=== PATIENT | male | born 1970 | race Asian ===

== ENCOUNTER 2016-03-09 06:08 | Emergency (ER) | payer MEDICAID ==
[~2016-03-09] VITALS: Ht 177.8 cm; Wt 90.0 kg
[~2016-03-09 06:08] MED LIST: ADV25050 INH; ALBU8.5H3 INH; ALBU8.5H5 IH; ATA50 PO; AZIT250T94 PO; BENZ100C70 PO; CETI10CA PO; CYCL-319 PO; GUAI118L94 PO; GUAI473L22 PO; HC1C30 TOP; HYDR-3498 PO; MED4DP PO; NAPR-260 PO; PRED20TA PO; PRED50TA PO; PROM5SYR2 PO
[2016-03-09 06:12] VITALS: Ht 177.8 cm; Wt 90.0 kg
[2016-03-09] MEDS ORDERED: AZIT250T94 PO (06:40)
[2016-03-09] MEDS ORDERED: PRED20TA PO (06:40)
[2016-03-09] MEDS ORDERED: HYDR-3010 PO (06:40)
[2016-03-09] MEDS ORDERED: ALBU18HF INHALATION (06:40)
[2016-03-09] MEDS ORDERED: PROM5SYR2 PO (06:43)
--- NOTE | 2016-03-09 06:53 | ERD ---
ER Documentation Chief Complaint Date/Time DATE: 03/09/16 TIME: 06:51 Chief Complaint cough and cold sx for 3 days HPI Patient is a 45-year-old male who has a history of asthma presents with cough and congestion for 3 days. Closed is dry with his name is difficult for him to sleep. Denies any nausea or vomiting. Does admit to sore throat. He has tried several nyfw-uod-arsdzyd medications which have not helped. He uses Ventolin inhaler at home. ROS All systems reviewed and are negative except as per history of present illness. Medications Home Meds Active Scripts Promethazine HCl/Codeine (Prometh-Codein 6.25-10 mg/5 ml) 5 Ml Syrup, 5 ML PO QHS, #4 OZ Prov:DUDLEY SCALES PA-C 03/09/16 Hydroxyzine Hcl* (Hydroxyzine Hcl*) 10 Mg Tablet, 10 MG PO Q6H Y for ITCHING, # 30 TAB Prov:DUDLEY SCALES PA-C 03/09/16 Azithromycin* (Zithromax*) 250 Mg Tablet, 250 MG PO .ZPACK DIRECTED, #6 TAB TAKE 500 MG (2 TABS) THE FIRST DAY THEN 250 MG (1 TAB) DAYS 2-5 Prov:DUDLEY SCALES PA-C 03/09/16 Prednisone* (Prednisone*) 20 Mg Tab, 40 MG PO DAILY for 5 Days, TAB Prov:DUDLEY SCALES PA-C 03/09/16 Albuterol Sulfate* (Ventolin HFA*) 18 Gm Hfa.aer.ad, 2 PUFF INHALATION Q4H, #1 INHALER Prov:DUDLEY SCALES PA-C 03/09/16 Guaifenesin-Codeine Phosphate* (Guaifenesin* AC Cough Syrup) 473 Ml Liquid, 10 ML PO Q4H Y for COUGH, #120 ML Prov:JORGE WING NP 01/11/16 Cetirizine Hcl* (Zyrtec*) 10 Mg Capsule, 10 MG PO DAILY, #30 TAB.CHEW Prov:JORGE WING NP 01/11/16 Prednisone* (Prednisone*) 50 Mg Tablet, 50 MG PO DAILY for 5 Days, TAB Prov:JORGE WING NP 11/17/16 Albuterol Sulfate* (Proair HFA*) 8.5 Gm Hfa.aer.ad, 2 PUFF INH Q4H Y for WHEEZING AND SOB, #1 INHALER Prov:JORGE WING NP 01/11/16 Prednisone* (Prednisone*) 20 Mg Tab, 40 MG PO DAILY for 4 Days, TAB Prov:HOLGER VU PA-C 10/18/15 Benzonatate* (Tessalon Perle*) 100 Mg Capsule, 100 MG PO Q8H Y for COUGH, #30 CAP Prov:HOLGER VU PA-C 10/18/15 Azithromycin* (Zithromax*) 250 Mg Tablet, 250 MG PO DAILY, #6 TAB 500 mg (2 tabs of 250 mg) on day 1 250 mg PO on day 2 250 mg PO on day 3 250 mg PO on day 4 250 mg PO on day 5 Prov:HOLGER VU PA-C 10/18/15 Albuterol Sulfate* (Proair HFA*) 8.5 Gm Hfa.aer.ad, 2 PUFF INH Q4, #1 INHALER Prov:HOLGER VU PA-C 10/18/15 Promethazine HCl/Codeine (Prometh-Codein 6.25-10 mg/5 ml) 5 Ml Syrup, 5 ML PO QHS, #100 ML Prov:HOLGER VU PA-C 10/18/15 Prednisone* (Prednisone*) 20 Mg Tab, 60 MG PO DAILY for 5 Days, TAB Prov:SEGUNDO SORIANO MD 09/21/15 Methylprednisolone* (Medrol* DOSE PACK) 4 Mg/Dose-Pack Tab.ds.pk, 4 MG PO . DIRECTED, #1 PACKET Prov:KRYSTLE FREEMAN DO 09/20/15 Cyclobenzaprine Hcl* (Cyclobenzaprine Hcl*) 10 Mg Tablet, 10 MG PO TID for 10 Days, #30 TAB Prov:CHICA SIM PA-C 09/16/15 Hydrocortisone* Topical (Hydrocortisone* Topical) 1%-28.35 Gm Cream..g., 1 APPLIC TOP Q6 Y for ITCHING, #1 TUB Prov:KENDY LEACH PA-C 09/16/15 Hydroxyzine Hcl* (Atarax*) 50 Mg Tab, 50 MG PO Q6H Y for ITCHING, #30 TAB Prov:KENDY LEACH PA-C 09/16/15 Naproxen* (Naprosyn*) 500 Mg Tablet, 500 MG PO BID Y for PAIN AND/OR INFLAMMATION, #30 TAB Prov:KENDY LEACH PA-C 09/16/15 Hydrocodone Bit-Acetaminophen* ([place]*) 5-325 Mg Tab, 1 TAB PO Q6 Y for PAIN, # 15 TAB Prov:KENDY LEACH PA-C 09/16/15 Salmeterol Xinaf/Fluticasone* (Advair*) 250-50 Diskus Inhaler, 1 INH INH BID, # 1 INH Prov:JORGE WING NP 10/17/14 Guaifenesin-Codeine Phosphate* (Guaifenesin* with Codeine Liq) 120 Ml Liquid, 5 ML PO Q4H for COUGH, #30 ML Prov:JORGE WING NP 10/17/14 Albuterol Sulfate* (Albuterol Sulfate* HFA) 8.5 Gm Hfa.aer.ad, 2 PUFF IH Q4H Y for WHEEZING AND SOB, #1 EA Prov:JORGE WING NP 10/17/14 Allergies Allergies: Coded Allergies: No Known Drug Allergies (Verified Allergy, Unknown, 10/18/15) PMhx/Soc History of Surgery: No Anesthesia Reaction: No Hx Neurological Disorder: No Hx Respiratory Disorders: Yes (ASTHMA, bronchitis) Hx Cardiac Disorders: No Hx Psychiatric Problems: No Hx Miscellaneous Medical Probl: No Hx Alcohol Use: Yes (SOCIAL- BEER, 3-4 times/week) Hx Substance Use: No Hx Tobacco Use: No FmHx Family History: No diabetes Physical Exam Vitals Vital Signs Date Time Temp Pulse Resp B/P Pulse Ox O2 Delivery O2 Flow Rate FiO2 03/09/16 06:12 97.9 94 18 126/85 97 Physical Exam General: well developed, well nourished, alert, nontoxic, no distress Head: normocephalic, atraumatic Neck: Supple, nontender, no lymphadenopathy, no midline tenderness Oropharynx: no tonsilar erythema or edema, uvula midline, no exudates, no kissing tonsils, no drooling Respiratory: Mild bilateral respiratory wheezing, speaks in full sentences, no use of accesory muscles or labored breathing Cardiovascular: RRR, No murmurs uch in tact Procedures/MDM 45-year-old asthmatic male presents with the swell slightly wheezy bronchitis. His vital signs are all within normal limits and his examination is benign. I have a low suspicion for pneumonia. He is treated out patiently with Ventolin, prednisone, Z-Filiberto, and hydroxyzine. He was also given a cough syrup per his request.Recommended this patient follow up with her primary care doctor within 48 hours or return to the emergency room for any worsening of symptoms. However this time I do believe there is suitable for outpatient management. I answered all their questions and they agreed with the plan and were discharged home. Departure Diagnosis: Primary Impression: Acute wheezy bronchitis Condition: Stable Patient Instructions: Bronchitis With Wheezing (Adult) Additional Instructions: Call your primary care doctor TOMORROW for an appointment during the next 1-2 days.See the doctor sooner or return here if your condition worsens before your appointment time. DUDLEY SCALES PA-C Mar 09, 2016 06:53
[2016-03-09 07:00] VITALS: BP 118/78; PULSE 78; RESP 18; TEMP 98
[2016-03-09] MEDS ORDERED: HYDR-3012 PO (07:04)
== END 2016-03-09 07:00 | disposition home or self-care (01) ==
LOC: FTE 06:08
DX: J20.9 Acute bronchitis, unspecified (principal); J45.909 Unspecified asthma, uncomplicated
CPT/HCPCS: 99284

== ENCOUNTER 2016-06-06 21:30 | Emergency (ER) | payer MEDICAID ==
[~2016-06-06] VITALS: Ht 177.8 cm; Wt 89.0 kg
[~2016-06-06 21:30] MED LIST changes: +ALBU18HF INHALATION; +HYDR-3010 PO; +HYDR-3012 PO
[2016-06-06 21:33] VITALS: Ht 177.8 cm; Wt 89.0 kg
[2016-06-06] MEDS ORDERED: ALBUTEROL 0.5% (NEB) 2.5 MG/0.5 ML AMP INH STA (22:06)
[2016-06-06] MEDS ORDERED: IPRATROPIUM (NEB) 0.5 MG/2.5 ML AMP INH STA (22:06)
[2016-06-06] MEDS ORDERED: METHYLPREDNISOLONE 125 MG INJ IM STA (22:06)
--- NOTE | 2016-06-06 23:22 | ERD ---
ER Documentation Chief Complaint Date/Time DATE: 06/06/16 Chief Complaint Asthma exacerbation HPI The patient is a 45-year-old male, with a history of asthma, who presents to the Emergency Department with complaint of asthma exacerbation. He reports that over the past two weeks he has been experiencing intermittent wheezing and shortness of breath. He has been using his ProAir HFA inhaler with minimal short-term relief, but soon after his symptoms resume. He admits to mild shortness of breath and dry cough at this time. Otherwise, denies chest pain, palpitations, stridor, lower extremity edema, calf swelling/tenderness. Denies history of DVT/PE. Denies fevers, chills, neck pain, neck stiffness, sore throat, new rashes. Denies any other complaints at this time. The patient does note that in the past, when he used Ventolin HFA, his symptoms were better alleviated, but has not been able to afford the Ventolin HFA under his insurance plan. ROS All systems reviewed and are negative except as per history of present illness. Medications Home Meds Active Scripts Hydroxyzine Hcl* (Hydroxyzine Hcl*) 50 Mg Tablet, 50 MG PO Q8, #30 TAB Prov:RACHEAL GRADY PA-C 06/06/16 Montelukast Sodium* (Singulair*) 10 Mg Tablet, 10 MG PO QHS, #30 TAB Prov:RACHEAL GRADY PA-C 06/06/16 Prednisone* (Prednisone*) 20 Mg Tab, 40 MG PO DAILY for 5 Days, TAB Prov:RACHEAL GRADY PA-C 06/06/16 Hydroxyzine Hcl* (Hydroxyzine Hcl*) 50 Mg Tablet, 50 MG PO Q6H Y for ITCHING, # 30 TAB Prov:DUDLEY SCALES PA-C 03/09/16 Promethazine HCl/Codeine (Prometh-Codein 6.25-10 mg/5 ml) 5 Ml Syrup, 5 ML PO QHS, #4 OZ Prov:DUDLEY SCALES PA-C 03/09/16 Hydroxyzine Hcl* (Hydroxyzine Hcl*) 10 Mg Tablet, 10 MG PO Q6H Y for ITCHING, # 30 TAB Prov:DUDLEY SCALES PA-C 03/09/16 Azithromycin* (Zithromax*) 250 Mg Tablet, 250 MG PO .[place] DIRECTED, #6 TAB TAKE 500 MG (2 TABS) THE FIRST DAY THEN 250 MG (1 TAB) DAYS 2-5 Prov:SCALESDUDLEY SHIN PA-C 03/09/16 Prednisone* (Prednisone*) 20 Mg Tab, 40 MG PO DAILY for 5 Days, TAB Prov:SCALESDUDLEY SHIN PA-C 03/09/16 Albuterol Sulfate* (Ventolin HFA*) 18 Gm Hfa.aer.ad, 2 PUFF INHALATION Q4H, #1 INHALER Prov:SCALESDUDLEY SHIN PA-C 03/09/16 Guaifenesin-Codeine Phosphate* (Guaifenesin* AC Cough Syrup) 473 Ml Liquid, 10 ML PO Q4H Y for COUGH, #120 ML Prov:JORGE WING NP 01/11/16 Cetirizine Hcl* (Zyrtec*) 10 Mg Capsule, 10 MG PO DAILY, #30 TAB.CHEW Prov:JORGE WING NP 01/11/16 Prednisone* (Prednisone*) 50 Mg Tablet, 50 MG PO DAILY for 5 Days, TAB Prov:JORGE WING NP 01/11/16 Albuterol Sulfate* (Proair HFA*) 8.5 Gm Hfa.aer.ad, 2 PUFF INH Q4H Y for WHEEZING AND SOB, #1 INHALER Prov:JORGE WING NP 01/11/16 Prednisone* (Prednisone*) 20 Mg Tab, 40 MG PO DAILY for 4 Days, TAB Prov:HOLGER VU PA-C 10/18/15 Benzonatate* (Tessalon Perle*) 100 Mg Capsule, 100 MG PO Q8H Y for COUGH, #30 CAP Prov:HOLGER VU PA-C 10/18/15 Azithromycin* (Zithromax*) 250 Mg Tablet, 250 MG PO DAILY, #6 TAB 500 mg (2 tabs of 250 mg) on day 1 250 mg PO on day 2 250 mg PO on day 3 250 mg PO on day 4 250 mg PO on day 5 Prov:HOLGER VU PA-C 10/18/15 Albuterol Sulfate* (Proair HFA*) 8.5 Gm Hfa.aer.ad, 2 PUFF INH Q4, #1 INHALER Prov:HOLGER VU PA-C 10/18/15 Promethazine HCl/Codeine (Prometh-Codein 6.25-10 mg/5 ml) 5 Ml Syrup, 5 ML PO QHS, #100 ML Prov:HOLGER VU PA-C 10/18/15 Prednisone* (Prednisone*) 20 Mg Tab, 60 MG PO DAILY for 5 Days, TAB Prov:SEGUNDO SORIANO MD 09/21/15 Methylprednisolone* (Medrol* DOSE PACK) 4 Mg/Dose-Pack Tab.ds.pk, 4 MG PO . DIRECTED, #1 PACKET Prov:KRYSTLE FREEMAN DO 09/20/15 Cyclobenzaprine Hcl* (Cyclobenzaprine Hcl*) 10 Mg Tablet, 10 MG PO TID for 10 Days, #30 TAB Prov:CHICA SIM PA-C 09/16/15 Hydrocortisone* Topical (Hydrocortisone* Topical) 1%-28.35 Gm Cream..g., 1 APPLIC TOP Q6 Y for ITCHING, #1 TUB Prov:KENDY LEACH PA-C 09/16/15 Hydroxyzine Hcl* (Atarax*) 50 Mg Tab, 50 MG PO Q6H Y for ITCHING, #30 TAB Prov:KENDY LEACH PA-C 09/16/15 Naproxen* (Naprosyn*) 500 Mg Tablet, 500 MG PO BID Y for PAIN AND/OR INFLAMMATION, #30 TAB Prov:KENDY LEACH PA-C 09/16/15 Hydrocodone Bit-Acetaminophen* ([place]*) 5-325 Mg Tab, 1 TAB PO Q6 Y for PAIN, # 15 TAB Prov:KENDY LEACH PA-C 09/16/15 Salmeterol Xinaf/Fluticasone* (Advair*) 250-50 Diskus Inhaler, 1 INH INH BID, # 1 INH Prov:JORGE WING NP 10/17/14 Guaifenesin-Codeine Phosphate* (Guaifenesin* with Codeine Liq) 120 Ml Liquid, 5 ML PO Q4H for COUGH, #30 ML Prov:JORGE WING NP 10/17/14 Albuterol Sulfate* (Albuterol Sulfate* HFA) 8.5 Gm Hfa.aer.ad, 2 PUFF IH Q4H Y for WHEEZING AND SOB, #1 EA Prov:JORGE WING RAMÍREZ TJuna RUTLEDGE 10/17/14 Allergies Allergies: Coded Allergies: No Known Drug Allergies (Verified Allergy, Unknown, 10/18/15) PMhx/Soc Medical and Surgical Hx: pt denies Medical Hx, pt denies Surgical Hx History of Surgery: No Anesthesia Reaction: No Hx Neurological Disorder: No Hx Respiratory Disorders: Yes (ASTHMA, bronchitis) Hx Cardiac Disorders: No Hx Psychiatric Problems: No Hx Miscellaneous Medical Probl: No Hx Alcohol Use: Yes (SOCIAL- BEER, 3-4 times/week) Hx Substance Use: No Hx Tobacco Use: No Physical Exam Vitals Vital Signs Date Time Temp Pulse Resp B/P Pulse Ox O2 Delivery O2 Flow Rate FiO2 06/06/16 23:29 97.3 111 20 131/67 98 Room Air 06/06/16 22:14 81 18 98 21 06/06/16 21:33 97.0 83 20 140/63 97 Physical Exam GENERAL: Well-developed, well-nourished, in no acute distress HEENT: Head is normocephalic, atraumatic. No scleral pallor or icterus. Pupils equal, round and reactive to light. Extraocular movements intact. Conjunctiva pink. Bilaterally tympanic membranes are clear with no evidence of erythema, effusion or dulling of the light reflex. Moist mucous membranes. No pharyngeal erythema or exudates. Uvula is midline. NECK: Supple. No masses, no tenderness, no lymphadenopathy. Trachea midline. No nuchal rigidity. Full range of motion. RESPIRATORY: Scattered wheezes throughout bilateral lung wright. No rales or rhonchi. Normal expiratory effort. No accessory muscle use. No retractions. No nasal flaring. Speaking in full sentences. CARDIOVASCULAR: Regular rate and rhythm. S1 and S2 normal. No murmurs, rubs, or gallops. GASTROINTESTINAL: Abdomen is soft, nontender, and nondistended. EXTREMITIES: No clubbing, cyanosis, or edema. Normal skin perfusion. Full range of motion of both the upper and lower extremities bilaterally. Muscle tone is normal. No focal swelling or erythema. Distal pulses are palpable, 2+ bilaterally. Capillary refill is less than 2 seconds. NEUROLOGIC: The patient is alert, awake, and oriented x 3. No focal neurologic deficits. INTEGUMENT: Skin is clean, dry and intact. PSYCHIATRIC: Cooperative. Results 24 hrs Current Medications Medications (Trade) Dose Ordered Sig/Aubrie Route PRN Reason Start Time Stop Time Status Last Admin Dose Admin Albuterol (Proventil 0.5% (Neb)) 10 mg ONCE STAT INH 06/06/16 22:06 06/06/16 22:07 DC 06/06/16 22:14 Ipratropium [place] (Atrovent 0.02% (Neb)) 1 mg ONCE STAT INH 06/06/16 22:06 06/06/16 22:07 DC 06/06/16 22:14 Methylprednisolone Sodium Succinate (Solu-Medrol) 125 mg ONCE STAT IM 06/06/16 22:06 06/06/16 22:07 DC 06/06/16 22:11 Albuterol (Ventolin Hfa) 2 puff ONCE ONCE INH 06/06/16 23:30 06/06/16 23:31 DC 06/06/16 23:29 Procedures/MDM This is a 45-year-old male presenting to the emergency department with acute asthma exacerbation. He was given albuterol 10 mg as well as Atrovent 1 mg by nebulizer treatment over 1 hour. Solu-Medrol 125 mg IM was also administered. After rest, a period of observation, medication and breathing treatment, the patient had resolution of his wheezing, and felt significantly better. His lungs are now clear to auscultation bilaterally, with no rales, rhonchi or wheezing. No intercostal retractions, nasal flaring, accessory muscle use or signs of respiratory distress. Clinical presentation is not consistent with pneumonia, acute coronary syndrome, pulmonary embolism, acute respiratory distress syndrome, status asthmaticus, sinusitis, otitis media, otitis externa, pharyngitis, airway obstruction, anaphylaxis, more thorax, acute/surgical abdomen, sepsis, dehydration or meningitis. At this time, the patient is in stable condition, and no longer experiencing any wheezing or shortness of breath , and therefore can be discharged home with prescriptions for a short course of prednisone, and a Ventolin inhaler (provided in ED). Patient is noted to be tachycardic, however likely secondary to recent breathing treatment. He is advised to follow-up with his primary care provider for reevaluation and further management within 2-3 days, or return to the ER sooner for any new or worsening symptoms. I shared my medical decision making and plan with the patient at length and in great detail, and he verbally understands and agrees with the plan for further observation and care as an outpatient. At the time of discharge, all questions were answered. Departure Diagnosis: Primary Impression: Asthma with acute exacerbation Asthma severity: unspecified severity Qualified Code: J45.901 - Asthma with acute exacerbation, unspecified asthma severity Condition: Stable Patient Instructions: Asthma, Acute (Adult) Additional Instructions: Call your primary care doctor TOMORROW for an appointment during the next 2-3 days.See the doctor sooner or return here if your condition worsens before your appointment time. RACHEAL GRADY PA-C Jun 06, 2016 23:22
[2016-06-06] MEDS ORDERED: PRED20TA PO (23:23)
[2016-06-06 23:29] VITALS: BP 131/67; PULSE 111; RESP 20; TEMP 97.3
[2016-06-06] MEDS ORDERED: MONT10TA21 PO (23:29)
[2016-06-06] MEDS ORDERED: HYDR-3012 PO (23:29)
[2016-06-06] MEDS ORDERED: ALBUTEROL 18 GM INHALER INH ONE (23:30)
== END 2016-06-06 23:31 | disposition home or self-care (01) ==
LOC: FTE 21:30
DX: J45.901 Unspecified asthma with (acute) exacerbation (principal)
CPT/HCPCS: 94644; J2930; Z7610; 96372

== ENCOUNTER 2016-06-23 23:46 | Emergency (ER) | payer MEDICAID ==
[~2016-06-23] VITALS: Ht 177.8 cm; Wt 89.0 kg
[~2016-06-23 23:46] MED LIST changes: +MONT10TA21 PO
[2016-06-24 00:06] VITALS: Ht 177.8 cm; Wt 89.0 kg
[2016-06-24] MEDS ORDERED: PROM25TA14 PO (00:27)
[2016-06-24] MEDS ORDERED: LORA-186 PO (00:27)
--- NOTE | 2016-06-24 00:31 | ERD ---
ER Documentation Chief Complaint Date/Time DATE: 06/24/16 TIME: 00:28 Chief Complaint NON PRODUCTIVE COUGH X 1 WEEK, NO FEVER HPI This is a 45-year-old male history of asthma presenting to the emergency department complaining of a dry cough for the past week. He rates as moderate and 3 patient admits to having a sore throat denies any fevers, ear pain, shortness of breath, chest pain. Patient states that he was seen here 2 weeks ago for cough and he was offered a chest x-ray but he denied it. Patient is now asking for a chest x-ray ROS All systems reviewed and are negative except as per history of present illness. Medications Home Meds Active Scripts Loratadine* (Claritin*) 10 Mg Tablet, 10 MG PO DAILY, #20 TAB Prov:EMIL RINCON PA-C 06/24/16 Promethazine Hcl* (Phenergan*) 25 Mg Tablet, 25 MG PO Q6 Y for COUGH, #15 TAB Prov:EMIL RINCON PA-C 06/24/16 Hydroxyzine Hcl* (Hydroxyzine Hcl*) 50 Mg Tablet, 50 MG PO Q8, #30 TAB Prov:RACHEAL GRADY PA-C 06/06/16 Montelukast Sodium* (Singulair*) 10 Mg Tablet, 10 MG PO QHS, #30 TAB Prov:RACHEAL GRADY PA-C 06/06/16 Prednisone* (Prednisone*) 20 Mg Tab, 40 MG PO DAILY for 5 Days, TAB Prov:RACHEAL GRADY PA-C 06/06/16 Hydroxyzine Hcl* (Hydroxyzine Hcl*) 50 Mg Tablet, 50 MG PO Q6H Y for ITCHING, # 30 TAB Prov:DUDLEY SCALES PA-C 03/09/16 Promethazine HCl/Codeine (Prometh-Codein 6.25-10 mg/5 ml) 5 Ml Syrup, 5 ML PO QHS, #4 OZ Prov:DUDLEY SCALES PA-C 03/09/16 Hydroxyzine Hcl* (Hydroxyzine Hcl*) 10 Mg Tablet, 10 MG PO Q6H Y for ITCHING, # 30 TAB Prov:DUDLEY SCALES PA-C 03/09/16 Azithromycin* (Zithromax*) 250 Mg Tablet, 250 MG PO .ZPACK DIRECTED, #6 TAB TAKE 500 MG (2 TABS) THE FIRST DAY THEN 250 MG (1 TAB) DAYS 2-5 Prov:SCALESDUDLEY SHIN PA-C 03/09/16 Prednisone* (Prednisone*) 20 Mg Tab, 40 MG PO DAILY for 5 Days, TAB Prov:SCALESDUDLEY SHIN PA-C 03/09/16 Albuterol Sulfate* (Ventolin HFA*) 18 Gm Hfa.aer.ad, 2 PUFF INHALATION Q4H, #1 INHALER Prov:SCALESDUDLEY SHIN PA-C 03/09/16 Guaifenesin-Codeine Phosphate* (Guaifenesin* AC Cough Syrup) 473 Ml Liquid, 10 ML PO Q4H Y for COUGH, #120 ML Prov:JORGE WING NP 01/11/16 Cetirizine Hcl* (Zyrtec*) 10 Mg Capsule, 10 MG PO DAILY, #30 TAB.CHEW Prov:JORGE WING NP 01/11/16 Prednisone* (Prednisone*) 50 Mg Tablet, 50 MG PO DAILY for 5 Days, TAB Prov:JORGE WING NP 01/11/16 Albuterol Sulfate* (Proair HFA*) 8.5 Gm Hfa.aer.ad, 2 PUFF INH Q4H Y for WHEEZING AND SOB, #1 INHALER Prov:JORGE WING NP 01/11/16 Prednisone* (Prednisone*) 20 Mg Tab, 40 MG PO DAILY for 4 Days, TAB Prov:HOLGER VU PA-C 10/18/15 Benzonatate* (Tessalon Perle*) 100 Mg Capsule, 100 MG PO Q8H Y for COUGH, #30 CAP Prov:HOLGER VU PA-C 10/18/15 Azithromycin* (Zithromax*) 250 Mg Tablet, 250 MG PO DAILY, #6 TAB 500 mg (2 tabs of 250 mg) on day 1 250 mg PO on day 2 250 mg PO on day 3 250 mg PO on day 4 250 mg PO on day 5 Prov:HOLGER VU PA-C 10/18/15 Albuterol Sulfate* (Proair HFA*) 8.5 Gm Hfa.aer.ad, 2 PUFF INH Q4, #1 INHALER Prov:HOLGER VU PA-C 10/18/15 Promethazine HCl/Codeine (Prometh-Codein 6.25-10 mg/5 ml) 5 Ml Syrup, 5 ML PO QHS, #100 ML Prov:HOLGER VU PA-C 10/18/15 Prednisone* (Prednisone*) 20 Mg Tab, 60 MG PO DAILY for 5 Days, TAB Prov:SEGUNDO SORIANO MD 09/21/15 Methylprednisolone* (Medrol* DOSE PACK) 4 Mg/Dose-Pack Tab.ds.pk, 4 MG PO . DIRECTED, #1 PACKET Prov:KRYSTLE FREEMAN DO 09/20/15 Cyclobenzaprine Hcl* (Cyclobenzaprine Hcl*) 10 Mg Tablet, 10 MG PO TID for 10 Days, #30 TAB Prov:CHICA SIM PA-C 09/16/15 Hydrocortisone* Topical (Hydrocortisone* Topical) 1%-28.35 Gm Cream..g., 1 APPLIC TOP Q6 Y for ITCHING, #1 TUB Prov:KENDY LEACH PA-C 09/16/15 Hydroxyzine Hcl* (Atarax*) 50 Mg Tab, 50 MG PO Q6H Y for ITCHING, #30 TAB Prov:KENDY LEACH PA-C 09/16/15 Naproxen* (Naprosyn*) 500 Mg Tablet, 500 MG PO BID Y for PAIN AND/OR INFLAMMATION, #30 TAB Prov:KENDY LEACH PA-C 09/16/15 Hydrocodone Bit-Acetaminophen* ([place]*) 5-325 Mg Tab, 1 TAB PO Q6 Y for PAIN, # 15 TAB Prov:KENDY LEACH PA-C 09/16/15 Salmeterol Xinaf/Fluticasone* (Advair*) 250-50 Diskus Inhaler, 1 INH INH BID, # 1 INH Prov:JORGE WING NP 10/17/14 Guaifenesin-Codeine Phosphate* (Guaifenesin* with Codeine Liq) 120 Ml Liquid, 5 ML PO Q4H for COUGH, #30 ML Prov:JORGE WING NP 10/17/14 Albuterol Sulfate* (Albuterol Sulfate* HFA) 8.5 Gm Hfa.aer.ad, 2 PUFF IH Q4H Y for WHEEZING AND SOB, #1 EA Prov:JORGE WINGJuan DIRECTOR PUBLIC SERVICE 10/17/14 Allergies Allergies: Coded Allergies: No Known Drug Allergies (Verified Allergy, Unknown, 10/18/15) PMhx/Soc History of Surgery: No Anesthesia Reaction: No Hx Neurological Disorder: No Hx Respiratory Disorders: Yes (ASTHMA, bronchitis) Hx Cardiac Disorders: No Hx Psychiatric Problems: No Hx Miscellaneous Medical Probl: No Hx Alcohol Use: Yes (SOCIAL- BEER, 3-4 times/week) Hx Substance Use: No Hx Tobacco Use: No Physical Exam Vitals Vital Signs Date Time Temp Pulse Resp B/P Pulse Ox O2 Delivery O2 Flow Rate FiO2 06/24/16 00:06 98.5 85 18 124/86 100 Physical Exam Const: Well developed well-nourished no acute distress Head: Atraumatic Eyes: Normal Conjunctiva ENT: Normal External Ears, Nose and Mouth. Neck: Full range of motion..~ No meningismus. Resp: Clear to auscultation bilaterally Cardio: Regular rate and rhythm, no murmurs Abd: Soft, non tender, non distended. Normal bowel sounds Skin: No petechiae or rashes Back: No midline or flank tenderness Ext: No cyanosis, or edema Neur: Awake and alert Psych: Normal Mood and Affect Procedures/MDM This is a 45-year-old male with a history of asthma presenting to the emergency department complaining of a dry cough for the past week which is likely due to a viral upper respiratory infection or allergies/postnasal drip. There was no evidence of pneumonia, asthma exacerbation, pneumothorax or pleural effusion on examination. Patient was given prescription for promethazine and Claritin. He suitable to follow-up with his primary care physician for further evaluation and management. I discussed return to the ER for any worsening signs or symptoms. Chest x-ray was done in the ER, it appears normal any evidence of infiltrates, pneumothorax or pleural effusion. He stable for discharge. Discussed return to the ER for any worsening symptoms. He understands and agrees with Departure Diagnosis: Primary Impression: Cough Condition: Stable Patient Instructions: Cough, Chronic, Uncertain Cause, (Adult), [place], Viral, No Abx (Adult) Referrals: NO PRIMARY,CARE PHYSICIAN (PCP) Additional Instructions: FOLLOW UP WITH YOUR PRIMARY CARE PHYSICIAN TOMORROW.Return to this facility if you are not improving as expected. Take all medicines as directed. Return to this facility if you are not improving as expected. You have been given a medicine which may cause drowsiness.DO NOT DRIVE OR OPERATE DANGEROUS MACHINERY while taking this medicine! EMIL RINCON PA-C June 24, 2016 00:31
--- NOTE | 2016-06-24 01:11 | RADRPT ---
PROCEDURE: Portable chest x-ray. CLINICAL INDICATION: Cough. TECHNIQUE: Portable AP view of the chest. COMPARISON: 10/18/2015. FINDINGS: No pulmonary edema or conolidation is identified. The cardiac silhouette is magnified. No pleural effusion is seen. There is no pneumothorax. IMPRESSION: 1. No evidence of acute cardiopulmonary disease. RPTAT: HTAR .Lukasz Garcia MD, MD Date Time Electronically viewed and signed by .Lukasz Garcia MD, on 06/24/2016 01:11 .R/
== END 2016-06-24 01:32 | disposition home or self-care (01) ==
LOC: FTE 23:46
DX: R05 Cough (principal); J45.909 Unspecified asthma, uncomplicated
CPT/HCPCS: 71010; Z7502

== ENCOUNTER 2016-10-31 04:48 | Emergency (ER) | payer SELFPAY ==
[~2016-10-31] VITALS: Ht 177.8 cm; Wt 87.0 kg
[~2016-10-31 04:48] MED LIST changes: +LORA-186 PO; +PROM25TA14 PO
[2016-10-31 05:01] VITALS: Ht 177.8 cm; Wt 87.0 kg
[2016-10-31 06:05] VITALS: BP 149/93; PULSE 74; TEMP 98.2
[2016-10-31] MEDS ORDERED: ELIM TOP (06:20)
[2016-10-31] MEDS ORDERED: BEN25 PO (06:21)
--- NOTE | 2016-10-31 06:30 | ERD ---
ER Documentation Chief Complaint Date/Time DATE: 10/31/16 TIME: 06:22 Chief Complaint itching x 3 days, only at night. "unable to sleep" No rash noted HPI Patient is a 46-year-old male who presents to the emergency department for concerns of itching 3 days which is only present at night. Patient states that his dog had fleasAnd tics. Patient states that he treated his dog. Patient states after treating his dog he developed itching. Patient states he "did research and called an spear fisher who told me that I have fleas and mites." Patient reports difficulty sleeping secondary itching. Patient has no obvious rashes. Patient denies any recent travel, new foods, environments or medications. Patient denies any fevers or chills. Patient denies any homicidal suicidal ideations at this time. ROS All systems reviewed and are negative except as per history of present illness. Medications Home Meds Active Scripts Diphenhydramine Hcl* (Benadryl*) 25 Mg Cap, 25 MG PO Q6, #20 CAP Prov:ECHO LINARES PA-C 10/31/16 Permethrin* (Elimite*) 5% Cr, 1 APPLIC TOP ONCE, #1 Prov:ECHO LINARES PA-C 10/31/16 Loratadine* (Claritin*) 10 Mg Tablet, 10 MG PO DAILY, #20 TAB Prov:EMIL RINCON PA-C 06/24/16 Promethazine Hcl* (Phenergan*) 25 Mg Tablet, 25 MG PO Q6 Y for COUGH, #15 TAB Prov:EMIL RINCON PA-C 06/24/16 Hydroxyzine Hcl* (Hydroxyzine Hcl*) 50 Mg Tablet, 50 MG PO Q8, #30 TAB Prov:RACHEAL GRADY PA-C 06/06/16 Montelukast Sodium* (Singulair*) 10 Mg Tablet, 10 MG PO QHS, #30 TAB Prov:RACHEAL GRADY PA-C 06/06/16 Prednisone* (Prednisone*) 20 Mg Tab, 40 MG PO DAILY for 5 Days, TAB Prov:RACHEAL GRADY PA-C 06/06/16 Hydroxyzine Hcl* (Hydroxyzine Hcl*) 50 Mg Tablet, 50 MG PO Q6H Y for ITCHING, # 30 TAB Prov:DUDLEY SCALES PA-C 03/09/16 Promethazine HCl/Codeine (Prometh-Codein 6.25-10 mg/5 ml) 5 Ml Syrup, 5 ML PO QHS, #4 OZ Prov:DUDLEY SCALES PA-C 03/09/16 Hydroxyzine Hcl* (Hydroxyzine Hcl*) 10 Mg Tablet, 10 MG PO Q6H Y for ITCHING, # 30 TAB Prov:DUDLEY SCALES PA-C 03/09/16 Azithromycin* (Zithromax*) 250 Mg Tablet, 250 MG PO .ZPACK DIRECTED, #6 TAB TAKE 500 MG (2 TABS) THE FIRST DAY THEN 250 MG (1 TAB) DAYS 2-5 Prov:DUDLEY SCALES PA-C 03/09/16 Prednisone* (Prednisone*) 20 Mg Tab, 40 MG PO DAILY for 5 Days, TAB Prov:DUDLEY SCALES PA-C 03/09/16 Albuterol Sulfate* (Ventolin HFA*) 18 Gm Hfa.aer.ad, 2 PUFF INHALATION Q4H, #1 INHALER Prov:DUDLEY SCALES PA-C 03/09/16 Guaifenesin-Codeine Phosphate* (Guaifenesin* AC Cough Syrup) 473 Ml Liquid, 10 ML PO Q4H Y for COUGH, #120 ML Prov:JORGE WING NP 01/11/16 Cetirizine Hcl* (Zyrtec*) 10 Mg Capsule, 10 MG PO DAILY, #30 TAB.CHEW Prov:JORGE WING NP 01/11/16 Prednisone* (Prednisone*) 50 Mg Tablet, 50 MG PO DAILY for 5 Days, TAB Prov:JORGE WING NP 01/11/16 Albuterol Sulfate* (Proair HFA*) 8.5 Gm Hfa.aer.ad, 2 PUFF INH Q4H Y for WHEEZING AND SOB, #1 INHALER Prov:JORGE WING NP 01/11/16 Prednisone* (Prednisone*) 20 Mg Tab, 40 MG PO DAILY for 4 Days, TAB Prov:HOLGER UV PA-C 10/18/15 Benzonatate* (Tessalon Perle*) 100 Mg Capsule, 100 MG PO Q8H Y for COUGH, #30 CAP Prov:HOLGER VU PA-C 10/18/15 Azithromycin* (Zithromax*) 250 Mg Tablet, 250 MG PO DAILY, #6 TAB 500 mg (2 tabs of 250 mg) on day 1 250 mg PO on day 2 250 mg PO on day 3 250 mg PO on day 4 250 mg PO on day 5 Prov:HOLGER VU PA-C 10/18/15 Albuterol Sulfate* (Proair HFA*) 8.5 Gm Hfa.aer.ad, 2 PUFF INH Q4, #1 INHALER Prov:HOLGER VU PA-C 10/18/15 Promethazine HCl/Codeine (Prometh-Codein 6.25-10 mg/5 ml) 5 Ml Syrup, 5 ML PO QHS, #100 ML Prov:HOLGER VU PA-C 10/18/15 Prednisone* (Prednisone*) 20 Mg Tab, 60 MG PO DAILY for 5 Days, TAB Prov:SEGUNDO SORIANO MD 09/21/15 Methylprednisolone* (Medrol* DOSE PACK) 4 Mg/Dose-Pack Tab.ds.pk, 4 MG PO . DIRECTED, #1 PACKET Prov:KRYSTLE FREEMAN DO 09/20/15 Cyclobenzaprine Hcl* (Cyclobenzaprine Hcl*) 10 Mg Tablet, 10 MG PO TID for 10 Days, #30 TAB Prov:CHICA SIM PA-C 09/16/15 Hydrocortisone* Topical (Hydrocortisone* Topical) 1%-28.35 Gm Cream..g., 1 APPLIC TOP Q6 Y for ITCHING, #1 TUB Prov:KENDY LEACH PA-C 09/16/15 Hydroxyzine Hcl* (Atarax*) 50 Mg Tab, 50 MG PO Q6H Y for ITCHING, #30 TAB Prov:KENDY LEACH PA-C 09/16/15 Naproxen* (Naprosyn*) 500 Mg Tablet, 500 MG PO BID Y for PAIN AND/OR INFLAMMATION, #30 TAB Prov:KENDY LEACH PA-C 09/16/15 Hydrocodone Bit-Acetaminophen* ([place]*) 5-325 Mg Tab, 1 TAB PO Q6 Y for PAIN, # 15 TAB Prov:KENDY LEACH PA-C 09/16/15 Salmeterol Xinaf/Fluticasone* (Advair*) 250-50 Diskus Inhaler, 1 INH INH BID, # 1 INH Prov:JORGE WING NP 10/17/14 Guaifenesin-Codeine Phosphate* (Guaifenesin* with Codeine Liq) 120 Ml Liquid, 5 ML PO Q4H for COUGH, #30 ML Prov:JORGE WING [employer] RESEARCHER 10/17/14 Albuterol Sulfate* (Albuterol Sulfate* HFA) 8.5 Gm Hfa.aer.ad, 2 PUFF IH Q4H Y for WHEEZING AND SOB, #1 EA Prov:JORGE WING NP 10/17/14 Allergies Allergies: Coded Allergies: No Known Drug Allergies (Verified Allergy, Unknown, 10/31/16) PMhx/Soc History of Surgery: Yes (dental surgery) Anesthesia Reaction: No Hx Neurological Disorder: No Hx Respiratory Disorders: Yes (asthma) Hx Cardiac Disorders: No Hx Psychiatric Problems: No Hx Miscellaneous Medical Probl: No Hx Alcohol Use: Yes (socially) Hx Substance Use: No Hx Tobacco Use: No Smoking Status: Never smoker FmHx Family History: No diabetes Physical Exam Vitals Vital Signs Date Time Temp Pulse Resp B/P Pulse Ox O2 Delivery O2 Flow Rate FiO2 10/31/16 06:05 98.2 74 149/93 98 Room Air 10/31/16 05:01 98.0 81 18 139/88 97 Physical Exam GENERAL: Well-developed, well-nourished male. Appears in no acute distress. Speaking in full sentences. HEAD: Normocephalic, atraumatic. EYES: Pupils are equally reactive bilaterally. EOMs grossly intact. No conjunctival erythema. ENT: Moist mucous membranes. No uvula deviation. No kissing tonsils. NECK: Supple. No meningismus. Normal range of motion of the neck. LUNG: Clear to auscultation bilaterally. No rhonchi, wheezing, rales or coarse breath sounds. HEART: Regular rate and rhythm. No murmurs, rubs or gallops. EXTREMITIES: Equal pulses bilaterally. No peripheral clubbing, cyanosis or edema. No unilateral leg swelling. NEUROLOGIC: Alert and oriented. Moving all four extremities without any difficulty. Normal speech. Steady gait. SKIN: Normal color. Warm and dry. Excoriations noted on bilateral arms. No erythema or warmth. Procedures/MDM MEDICAL DECISION MAKING: This is a 46-year-old male who presents emergency department for concerns of itching 3 days. Patient states he is concerned he has fleas and mites given that his dog was recently diagnosed with fleas and mites. Vital signs were reviewed. Patient was afebrile. Skin exam revealed no rashes. Excoriation cisse are noted on the bilateral upper extremities. Given these findings, the patient's presentation is most consistent with itching. At this time I will empirically treat the patient for scabies given that he has concerns of bites. I have a much lower clinical concern for necrotizing fasciitis, sepsis, gangrene , Nino-John syndrome, toxic epidural necrolysis, abscess, herpes zoster, viral exanthem, anaphylaxis, fungal infection, impetigo, dermatitis. Of note, per [facility] report, patient has had 6 visits to the ER in the last 12 months. PRESCRIPTIONS: Permethrin, Benadryl DISCHARGE: At this time, patient is stable for discharge and outpatient management. I have advised the patient to avoid any new products, creams or possible allergens. I have advised the patient to avoid scratching the lesions. I have instructed the patient to follow-up with his/her primary care physician in 1-2 days. If symptoms persist, patient may need to see a air export agent for further examinations and testing. I have instructed the patient to promptly return to the ER at any time for any new or worsening symptoms including increased pain, fever, redness, swelling, warmth, difficulty breathing or vomiting. The patient and/or family expressed understanding of and agreement with this plan. All questions were answered. Home care instructions were provided. Departure Diagnosis: Primary Impression: Itching Condition: Stable Patient Instructions: Self-Care for Skin Rashes Referrals: COMMUNITY CLINICS YOU HAVE RECEIVED A MEDICAL SCREENING EXAM AND THE RESULTS INDICATE THAT YOU DO NOT HAVE A CONDITION THAT REQUIRES URGENT TREATMENT IN THE EMERGENCY DEPARTMENT. FURTHER EVALUATION AND TREATMENT OF YOUR CONDITION CAN WAIT UNTIL YOU ARE SEEN IN YOUR DOCTORS OFFICE WITHIN THE NEXT 1-2 DAYS. IT IS YOUR RESPONSIBILITY TO MAKE AN APPOINTMENT FOR FOLOW-UP CARE. IF YOU HAVE A PRIMARY DOCTOR --you should call your primary doctor and schedule an appointment IF YOU DO NOT HAVE A PRIMARY DOCTOR YOU CAN CALL OUR PHYSICIAN REFERRAL HOTLINE AT IF YOU CAN NOT AFFORD TO SEE A PHYSICIAN YOU CAN CHOSE FROM THE FOLLOWING [facility] [address] [facility] [address] [facility] [address] [facility] [address] [facility] [address] [facility]. [facility] [address] [facility]. [facility] YOU HAVE RECEIVED A MEDICAL SCREENING EXAM AND THE RESULTS INDICATE THAT YOU DO NOT HAVE A CONDITION THAT REQUIRES URGENT TREATMENT IN THE EMERGENCY DEPARTMENT. FURTHER EVALUATION AND TREATMENT OF YOUR CONDITION CAN WAIT UNTIL YOU ARE SEEN IN YOUR DOCTORS OFFICE WITHIN THE NEXT 1-2 DAYS. IT IS YOUR RESPONSIBILITY TO MAKE AN APPOINTMENT FOR FOLOW-UP CARE. IF YOU HAVE A PRIMARY DOCTOR --you should call your primary doctor and schedule and appointment IF YOU DO NOT HAVE A PRIMARY DOCTOR YOU CAN CALL OUR PHYSICIAN REFERRAL HOTLINE AT . IF YOU CAN NOT AFFORD TO SEE A PHYSICIAN YOU CAN CHOSE FROM THE FOLLOWING [facility]: [facility] [address] [place] [address] [facility] [address] [place] [address] [facility] [address] [place] [address] Additional Instructions: Call your primary care doctor TOMORROW for an appointment during the next 1-2 days.See the doctor sooner or return here if your condition worsens before your appointment time. ECHO LINARES PA-C Oct 31, 2016 06:30
== END 2016-10-31 06:40 | disposition home or self-care (01) ==
LOC: FTE 04:48
DX: L29.9 Pruritus, unspecified (principal); J45.909 Unspecified asthma, uncomplicated
CPT/HCPCS: 99283

== ENCOUNTER 2016-10-31 11:54 | Emergency (ER) | payer SELFPAY ==
[~2016-10-31] VITALS: Ht 172.7 cm; Wt 70.0 kg
[~2016-10-31 11:54] MED LIST changes: +BEN25 PO; +ELIM TOP
[2016-10-31 12:05] VITALS: Ht 172.7 cm; Wt 70.0 kg
== END 2016-10-31 16:03 | disposition left against medical advice (07) ==
LOC: E/R 11:54
DX: Z53.21 Procedure and treatment not carried out due to patient leaving prior to being seen by health care provider (principal)
CPT/HCPCS: 82962

== ENCOUNTER 2016-11-01 16:13 | Emergency (ER) | payer SELFPAY ==
[~2016-11-01] VITALS: Ht 175.3 cm; Wt 87.0 kg
[2016-11-01 16:22] VITALS: Ht 175.3 cm; Wt 87.0 kg
== END 2016-11-01 19:15 | disposition left against medical advice (07) ==
LOC: FTE 16:13
DX: Z53.21 Procedure and treatment not carried out due to patient leaving prior to being seen by health care provider (principal)

== ENCOUNTER 2016-11-01 21:04 | Emergency (ER) | payer SELFPAY ==
[~2016-11-01] VITALS: Ht 175.3 cm; Wt 87.0 kg
[2016-11-01 21:05] VITALS: Ht 175.3 cm; Wt 87.0 kg
== END 2016-11-01 22:00 | disposition left against medical advice (07) ==
LOC: FTE 21:04
DX: Z53.21 Procedure and treatment not carried out due to patient leaving prior to being seen by health care provider (principal)